=== PATIENT | male | born 1950 | race Caucasian/White ===

== ENCOUNTER 2016-11-12 04:44 | Emergency (ER) | payer MEDICARE ==
[~2016-11-12] VITALS: Ht 180.3 cm; Wt 84.0 kg
[~2016-11-12 04:44] MED LIST: IBUP800T23 PO; METH4TAB6 PO; OMEP20TA PO
[2016-11-12 04:46] VITALS: BP 182/90; PULSE 63; RESP 18; TEMP 98; O2SAT 96
--- NOTE | 2016-11-12 05:05 | PD ---
HPI Chief Complaint: Flank/Kidney Pain Time Seen by Provider: 04:55 Travel History International Travel<30 days: No Contact w/Intl Traveler<30days: No Traveled to known affect area: No History of Present Illness HPI 66-year-old male with history of ureterolithiasis here with complaint of 2 hours of right sided flank/abdominal pain. Patient was sleeping and was awoken at 3 AM with pain. He states that the pain as a dull ache in the right abdomen/ flank. Has had history of ureterolithiasis but states that this feels different. Denies any urinary symptoms. Nausea but no vomiting. No fevers or chills. Bowel movements are regular. No previous abdominal surgery. He took a tramadol approximately 1 hour prior to arrival without improvement of symptoms. PFSH Past Medical History Arthritis: Yes Cancer: Yes (prostate) Diminished Hearing: Yes ([facility] RIGHT SIDE) GERD: Yes Kidney Stones: Yes Immunizations Current: Yes Past Surgical History Ear Surgery: Yes (right ear, mastoid surgery x 2 ) Prostatectomy: Yes Tonsillectomy: Yes Social History Alcohol Use: No Tobacco Use: No Substance Use: No Allergies-Medications (Allergen,Severity, Reaction): Coded Allergies: Lisinopril (Verified Adverse Reaction, Intermediate, Cough, 11/12/16) Reported Meds & Prescriptions Reported Meds & Active Scripts Active Ibuprofen 800 Mg Tab 800 Mg PO Q6HR PRN Reported Omeprazole 20 mg (Omeprazole) 20 Mg Tab 40 Mg PO DAILY Methylprednisolone 4 Mg Tab 2 Mg PO DAILY Review of Systems Except as stated in HPI: all other systems reviewed are Neg Physical Exam Narrative GENERAL: Well-appearing male in no mild distress SKIN: Warm and dry. HEAD: Normocephalic. EYES: No scleral icterus. No injection or drainage. ENT: Mucous membranes pink and moist. NECK: Supple CARDIOVASCULAR: Regular rate and rhythm. No murmur appreciated. RESPIRATORY: No accessory muscle use. Clear to auscultation. Breath sounds equal bilaterally. GASTROINTESTINAL: Abdomen soft, mild right midabdominal tenderness to palpation without rebound or guarding. No CVA tenderness. MUSCULOSKELETAL: Normal gait NEUROLOGICAL: Awake and alert. Normal speech. PSYCHIATRIC: Appropriate mood and affect; insight and judgment normal. Data Data Last Documented VS Vital Signs Date Time Temp Pulse Resp B/P Pulse Ox O2 Delivery O2 Flow Rate FiO2 11/12/16 05:23 98.1 70 18 152/81 98 Room Air Orders Complete Blood Count With Diff (11/12/16 05:02) Comprehensive Metabolic Panel (11/12/16 05:02) Lipase (11/12/16 05:02) Urinalysis - C+S If Indicated (11/12/16 05:02) Ct Abd/Pel W/O Iv Contrast (11/12/16 05:02) Iv Access Insert/Monitor (11/12/16 05:02) Ecg Monitoring (11/12/16 05:02) Oximetry (11/12/16 05:02) Morphine Inj (Morphine Inj) (11/12/16 05:15) Ondansetron Inj (Zofran Inj) (11/12/16 05:15) Sodium Chloride 0.9% Flush (Ns Flush) (11/12/16 05:15) Labs Laboratory Tests Test 11/12/16 05:10 White Blood Count 5.5 TH/MM3 Red Blood Count 5.11 MIL/MM3 Hemoglobin 15.5 GM/DL Hematocrit 46.6 % Mean Corpuscular Volume 91.2 FL Mean Corpuscular Hemoglobin 30.4 PG Mean Corpuscular Hemoglobin 33.3 % Concent Red Cell Distribution Width 13.2 % Platelet Count 164 TH/MM3 Mean Platelet Volume 8.3 FL Neutrophils (%) (Auto) 53.1 % Lymphocytes (%) (Auto) 31.6 % Monocytes (%) (Auto) 12.8 % Eosinophils (%) (Auto) 1.7 % Basophils (%) (Auto) 0.8 % Neutrophils # (Auto) 2.9 TH/MM3 Lymphocytes # (Auto) 1.7 TH/MM3 Monocytes # (Auto) 0.7 TH/MM3 Eosinophils # (Auto) 0.1 TH/MM3 Basophils # (Auto) 0.0 TH/MM3 CBC Comment DIFF FINAL Differential Comment Urine Color YELLOW Urine Turbidity CLEAR Urine pH 6.0 Urine Specific [place] 1.016 Urine Protein NEG mg/dL Urine Glucose (UA) NEG mg/dL Urine Ketones NEG mg/dL Urine Occult Blood SMALL Urine Nitrite NEG Urine Bilirubin NEG Urine Urobilinogen LESS THAN 2.0 MG/DL Urine Leukocyte Esterase NEG Urine RBC 5 /hpf Urine WBC LESS THAN 1 /hpf Urine Mucus FEW /lpf Microscopic Urinalysis Comment CULT NOT INDICATED Sodium Level 142 MEQ/L Potassium Level 4.0 MEQ/L Chloride Level 104 MEQ/L Carbon Dioxide Level 29.0 MEQ/L Anion Gap 9 MEQ/L Blood Urea Nitrogen 17 MG/DL Creatinine 0.94 MG/DL Estimat Glomerular Filtration 80 ML/MIN Rate Random Glucose 93 MG/DL Calcium Level 9.0 MG/DL Total Bilirubin 0.6 MG/DL Aspartate Amino Transf 28 U/L (AST/SGOT) Alanine Aminotransferase 54 U/L (ALT/SGPT) Alkaline Phosphatase 109 U/L Total Protein 8.0 GM/DL Albumin 4.2 GM/DL Lipase 69 U/L [facility] Medical Decision Making Medical Screen Exam Complete: Yes Emergency Medical Condition: Yes Medical Record Reviewed: Yes Differential Diagnosis 66-year-old male with 2 hours of right mid abdominal pain with nausea. Differential includes hepatobiliary pathology, pancreatitis, appendicitis, ureterolithiasis, UTI/pyelonephritis, gastritis, colitis. Narrative Course Patient placed on monitor, IV established and blood obtained. Given 4 mg morphine, 4 mg Zofran. CBC, CMP, lipase, urinalysis notable for microscopic hematuria. CT abdomen and pelvis showed a 4 mm right ureteropelvic junction stone with mild right hydronephrosis. Diagnosis Primary Impression: Ureterolithiasis Referrals: Valdo Carrillo MD as needed Urologist as needed Additional Instructions: Flomax as prescribed. Nausea, pain medications as needed. Urologist if symptoms persist and return to the ER for the warning signs discussed. Med/Other Pt SpecificInfo: Prescription(s) given Scripts Hydrocodone-Acetaminophen ([place])5-325 mg Tab1 Tab PO Q4H PRN (PAIN) #15 TAB Ref 0 Prov:Twila Fry MD 11/12/16 Ondansetron Odt (Zofran Odt)8 Mg Tab8 Mg SL Q8H PRN (NAUSEA OR VOMITING) #10 TAB Ref 0 Prov:Twila Fry MD 11/12/16 Tamsulosin (Flomax)0.4 Mg Cap0.8 Mg PO HS 30 Days Ref 0 Prov:Twila Fry MD 11/12/16 Disposition: 01 DISCHARGE HOME Condition: Stable Twila Fry MD Nov 12, 2016 05:05
[2016-11-12] MEDS ORDERED: SODIUM CHLORIDE 0.9% FLUSH 5 ML FLUSH IVF PRN (05:15)
[2016-11-12] MEDS ORDERED: ONDANSETRON HCL 4 MG/2 ML VIAL IVP ONE (05:15)
[2016-11-12] MEDS ORDERED: MORPHINE SULFATE 4 MG/ML INJ IV PUSH ONE (05:15)
[2016-11-12 05:23] VITALS: BP 152/81; PULSE 70; RESP 18; TEMP 98.1; O2SAT 98
[2016-11-12 05:24] LABS: AUTOMATED NEUTROPHIL # 2.9 TH/MM3 (1.8-7.7); BASOPHIL % 0.8 % (0.0-2.0); BLOOD, URINE SMALL (NEG); COMMENT (UR) CULT NOT INDICATED; CULTURE IF INDICATED CULT NOT INDICATED; EOSINOPHIL # 0.1 TH/MM3 (0-0.4); EOSINOPHIL % 1.7 % (0.0-4.0); GLUCOSE,URINE NEG (NEG); HEMATOCRIT 46.6 % (39.0-51.0); HEMO FLAGS DIFF FINAL; KETONE, URINE NEG (NEG); LYMPH % 31.6 % (9.0-44.0); LYMPHOCYTE # 1.7 TH/MM3 (1.0-4.8); MEAN CELL VOLUME 91.2 FL (80.0-100.0); MEAN CORPUSCULAR HEMOGLOBIN 30.4 PG (27.0-34.0); MEAN CORPUSCULAR HGB CONC 33.3 % (32.0-36.0); MONO % 12.8 % (0.0-8.0); MUCUS URINE FEW /lpf (OCC); NEUT % 53.1 % (16.0-70.0); NITRITE,URINE NEG (NEG); PLATELET COUNT 164 TH/MM3 (150-450); RED BLOOD COUNT 5.11 MIL/MM3 (4.50-5.90); RED CELL DISTRIBUTION WIDTH 13.2 % (11.6-17.2); URINE COLOR YELLOW (YELLW/STRAW); WHITE BLOOD COUNT 5.5 TH/MM3 (4.0-11.0)
[2016-11-12 05:48] LABS: ALT (GPT) 54 U/L (12-78); ANION GAP 9 MEQ/L (5-15); AST (GOT) 28 U/L (15-37); BLOOD UREA NITROGEN 17 MG/DL (7-18); CHLORIDE 104 MEQ/L (98-107); GLOMERULAR FILTRATION RATE 80 ML/MIN (>89); SODIUM (NA) 142 MEQ/L (136-145)
[2016-11-12 05:50] LABS: ALKALINE PHOSPHATASE 109 U/L (45-117); TOTAL BILIRUBIN ADULT 0.6 MG/DL (0.2-1.0)
--- NOTE | 2016-11-12 06:09 | RADRPT ---
EXAM DATE/TIME: 11/12/2016 05:09 [facility] COMPARISON: No previous studies available for comparison. INDICATIONS : Right flank pain. ORAL CONTRAST: No oral contrast ingested. RADIATION DOSE: 15.16 CTDIvol (mGy) MEDICAL HISTORY : Gastroesophageal reflux disease. Carcinoma, prostate. SURGICAL HISTORY : Prostatectomy. Tonsillectomy. ENCOUNTER: Initial ACUITY: 1 day PAIN SCALE: 7/10 LOCATION: Right flank TECHNIQUE: Volumetric scanning of the abdomen and pelvis was performed. Using automated exposure control and ad justment of the mA and/or kV according to patient size, radiation dose was kept as low as reasonably achievable to obtain optimal diagnostic quality images. FINDINGS: Examination of the lung bases demonstrates no abnormality. No pleural fluid is identified. No pulmona ry nodules are present. The liver and spleen are normal in size and no focal defects are identified. The gallbladder and pancreas are unremarkable. No intrahepatic or extrahepatic ductal dilatation is s een. The adrenal glands are unremarkable. A small hiatal hernia is present. The left kidney is unrema rkable. There multiple right renal stones with mild right hydronephrosis and a 4 mm stone in the righ t ureter pelvic junction Examination of the pelvis demonstrates no evidence of free fluid or pelvic mass. No abnormally enlarg ed inguinal or retroperitoneal lymph nodes are present. The bladder is unremarkable. There is diverti culosis without evidence of diverticulitis. The prostate gland is surgically absent. CONCLUSION: 4 mm right ureteropelvic junction stone with mild right hydronephrosis Ian White MD on November 12, 2016 at 6:03 Board Certified Radiologist. This report was verified electronically.
[2016-11-12 06:17] VITALS: BP 188/93; PULSE 69; RESP 18; O2SAT 99
[2016-11-12] MEDS ORDERED: ZOFR8TAB4 SL (06:17)
[2016-11-12] MEDS ORDERED: NORC5TAB PO (06:17)
[2016-11-12] MEDS ORDERED: TAMS5CAP PO (06:17)
[2016-11-12 06:23] VITALS: BP 166/101; PULSE 68; RESP 18; TEMP 98.1; O2SAT 100
[2016-11-12] MEDS ORDERED: ACETAMINOPHEN/HYDROcodone 325 MG/5 MG TAB PO ONE (06:30)
[2016-11-12] MEDS ORDERED: TAMSULOSIN HCL 0.4 MG CAP PO ONE (06:30)
[2016-11-12 06:41] VITALS: RESP 18
== END 2016-11-12 06:44 | disposition home or self-care (01) ==
LOC: NEPE 04:44
DX: N20.1 Calculus of ureter (principal); Z85.46 Personal history of malignant neoplasm of prostate; Z87.442 Personal history of urinary calculi
CPT/HCPCS: 74176; 80053; 81001; 83690; 85025; 96374; 96375; 99284; J2270; J2405

== ENCOUNTER 2017-05-15 16:24 | Observation (INO) | payer MEDICARE ==
[~2017-05-15] VITALS: Ht 180.3 cm; Wt 89.0 kg
[~2017-05-15 16:24] MED LIST changes: +NORC5TAB PO; +TAMS5CAP PO; +ZOFR8TAB4 SL
[2017-05-15 16:26] VITALS: BP 154/90; PULSE 94; RESP 16; TEMP 98.4; O2SAT 96
--- NOTE | 2017-05-15 20:44 | PD ---
HPI Chief Complaint: Eye Problems/Injury Time Seen by Provider: 20:21 Travel History International Travel<30 days: No Contact w/Intl Traveler<30days: No Traveled to known affect area: No History of Present Illness HPI The patient is a 66 year old male who presents to the [facility] emergency department with a history of reportedly working on his computer and watching television simultaneously at approximately 3 PM today. He reports that he had sudden onset of double vision. He reports that the vision appeared to be 2 images that were stacked at an angle. The patient reports that he would close one eye and the other eye appeared to have normal vision, when he close the other eye he had normal vision in that eye. However when he objects with both eyes the vision was double. He reports that this lasted from 40 seconds to 60 seconds. The patient reports that he has not had a recurrence since then. He denies ever having symptoms like this previously. He denies any prior history of TIA or stroke. He denies taking aspirin on a daily basis or any other anticoagulants. He reports that his recent history has been complicated by having an exacerbation of psoriatic arthritis with a 3 to four-day increase in his methylprednisolone from 2 mg of 4 mg per day. The patient reports that he has been on methylprednisolone 2 mg a day for over 5 years. He reports that he is not a candidate for other immune modulators due to a history of prostate cancer. The patient reports that he does have chronic congestion, clear rhinorrhea, postnasal drip related to allergies. He reports that he occasionally has frontal sinus headaches, however they have not been changed or worsened recently. He denies having any headache at this time. On review of systems, the patient denies any recent fevers, chest congestion, productive cough, neck pain, chest pain, shortness of breath, abdominal pain, vomiting, diarrhea, urinary symptoms, one-sided weakness, slurred speech, difficulty with word finding ability, dizziness, or facial droop. [facility] Past Medical History Narrative Medical The patient's past medical history is significant for prostate cancer treated status post prostatectomy and Lupron injections as well as radiation therapy. He completed his course of treatment a year and a half ago. He reports that he regularly has his PSA checked and it has been normal. The patient reports having a history of hypertension, however he has not recently been on any medications as it has been controlled by diet. He has a history of psoriatic arthritis. He has a history of acid reflux, and being hard of hearing on the right side, history of kidney stones. Arthritis: Yes Cancer: Yes (prostate) Diminished Hearing: Yes ([facility] [place] [facility] RIGHT SIDE) GERD: Yes Kidney Stones: Yes Immunizations Current: Yes Past Surgical History Narrative Surgical The patient's past surgical history is significant for a prostatectomy, right ear surgery, mastoid surgery 2. Ear Surgery: Yes (right ear, mastoid surgery x 2 ) Prostatectomy: Yes Tonsillectomy: Yes Social History Alcohol Use: No Tobacco Use: No Substance Use: No Allergies-Medications (Allergen,Severity, Reaction): Coded Allergies: Lisinopril (Verified Adverse Reaction, Intermediate, Cough, 11/12/16) Reported Meds & Prescriptions Reported Meds & Active Scripts Active Reported Omeprazole 20 Mg Tab 20 Mg PO DAILY Medrol (Methylprednisolone) 2 Mg Tab 2 Mg PO DAILY Review of Systems Except as stated in HPI: all other systems reviewed are Neg General / Constitutional: No: Fever Eyes: Positive: Diploplia, Blurred Vision, No: Photophobia, Redness, Foreign Body Sensation, Pain, Blind Spots, Visual changes, Blindness HENT: Positive: Headaches (however none currently), Rhinitis, Rhinorrhea, Congestion, No: Neck Stiffness, Neck Pain Cardiovascular: No: Chest Pain or Discomfort Respiratory: No: Shortness of Breath Gastrointestinal: No: Nausea, Vomiting, Diarrhea, Abdominal Pain, Changes in Bowel Habits Genitourinary: Positive: Frequency (chronic urinary frequency), No: Urgency, Dysuria, Pelvic Pain, Flank Pain Musculoskeletal: No: Pain Skin: No Rash Neurologic: No: Weakness, Dizziness, Focal Abnormalities, Headache, Change in Mentation, Slurred Speech, Sensory Disturbance Psychiatric: No: Depression Endocrine: No: Polydipsia Hematologic/Lymphatic: No: Easy Bruising Physical Exam Narrative General: The patient is a well-developed well-nourished male in no acute distress. Head and Neck exam: Head is normocephalic atraumatic. Eyes: EOMI, pupils are equal round and reactive to light. Nose: Midline septum with pink mucous membranes Mouth: Dentition unremarkable. Moist mucus membranes. Posterior oropharynx is not erythematous. No tonsillar hypertrophy. Uvula midline. Airway patent. Neck: No palpable lymphadenopathy. No nuchal rigidity. No thyromegaly. Cardiovascular: Regular rate and rhythm without murmurs, gallops, or rubs. No pulse deficit to the extremities and simultaneous auscultation and palpation of his radial artery. Lungs: Clear to auscultation bilaterally. No wheezes, rhonchi, or rales. Abdomen: Soft, without tenderness to palpation in all 4 quadrants of the abdomen. No guarding, rebound, or rigidity. Normal bowel sounds are audible. No tenderness on palpation of McBurney's point. Extremities: No clubbing, cyanosis, or edema. 2+ pulses in all 4 extremities. No calf tenderness on palpation. Back: No costovertebral angle tenderness to palpation. Neurologic Exam: Cranial nerves 2-12 were intact on exam. Strength is 5/5 in all 4 extremities. No sensory deficits noted. No dysdiadochokinesis. Good finger to nose and Heel to concepcion bilaterally. No nystagmus is noted. No visual field deficits. No double vision noted by his report at this time. Skin Exam: No rash noted. Intact skin that is warm and dry. Data Data Last Documented VS Vital Signs Date Time Temp Pulse Resp B/P Pulse Ox O2 Delivery O2 Flow Rate FiO2 05/15/17 23:00 76 18 137/79 96 Room Air 05/15/17 16:26 98.4 Orders Electrocardiogram (05/15/17 20:33) Complete Blood Count With Diff (05/15/17 20:33) Comprehensive Metabolic Panel (05/15/17 20:33) Troponin I (05/15/17 20:33) Prothrombin Time / Inr (Pt) (05/15/17 20:33) Act Partial Throm Time (Ptt) (05/15/17 20:33) C-Reactive Protein (Crp) (05/15/17 20:33) Lipase (05/15/17 20:33) Urinalysis - C+S If Indicated (05/15/17 20:33) Westergren Sedimentation Rate (05/15/17 20:33) Magnesium (Mg) (05/15/17 20:33) Chest, Single Ap (05/15/17 20:33) Ct Brain W/O Iv Contrast(Rout) (05/15/17 20:33) Iv Access Insert/Monitor (05/15/17 20:33) Ecg Monitoring (05/15/17 20:33) Oximetry (05/15/17 20:33) Ctv Brain W Iv Contrast W 3d (05/15/17 ) Mri Brain W&W/O Contrast (05/15/17 ) Sodium Chlor 0.9% 1000 Ml Inj (Ns 1000 M (05/15/17 20:45) [place] (05/15/17 20:44) Cta Thor Abd Aorta W Iv C W3d (05/15/17 ) Aspirin (Aspirin) (05/15/17 22:30) Iohexol 350 Inj (Omnipaque 350 Inj) (05/15/17 22:39) Gadodiamide Pf Inj (Omniscan Pf Inj) (05/15/17 22:39) Admit Order (Ed Use Only) (05/15/17 23:04) Labs Laboratory Tests Test 05/15/17 20:53 White Blood Count 7.0 TH/MM3 Red Blood Count 4.81 MIL/MM3 Hemoglobin 14.8 GM/DL Hematocrit 44.7 % Mean Corpuscular Volume 92.9 FL Mean Corpuscular Hemoglobin 30.6 PG Mean Corpuscular Hemoglobin 33.0 % Concent Red Cell Distribution Width 13.5 % Platelet Count 159 TH/MM3 Mean Platelet Volume 8.3 FL Neutrophils (%) (Auto) 61.0 % Lymphocytes (%) (Auto) 25.5 % Monocytes (%) (Auto) 12.1 % Eosinophils (%) (Auto) 1.0 % Basophils (%) (Auto) 0.4 % Neutrophils # (Auto) 4.3 TH/MM3 Lymphocytes # (Auto) 1.8 TH/MM3 Monocytes # (Auto) 0.9 TH/MM3 Eosinophils # (Auto) 0.1 TH/MM3 Basophils # (Auto) 0.0 TH/MM3 CBC Comment DIFF FINAL Differential Comment Erythrocyte Sedimentation Rate 9 mm/hr Prothrombin Time 10.4 SEC Prothromb Time International 0.9 RATIO Ratio Activated Partial 24.7 SEC Thromboplast Time Sodium Level 140 MEQ/L Potassium Level 4.2 MEQ/L Chloride Level 106 MEQ/L Carbon Dioxide Level 29.8 MEQ/L Anion Gap 4 MEQ/L Blood Urea Nitrogen 23 MG/DL Creatinine 0.94 MG/DL Estimat Glomerular Filtration 80 ML/MIN Rate Random Glucose 93 MG/DL Calcium Level 9.2 MG/DL Magnesium Level 2.2 MG/DL Total Bilirubin 0.4 MG/DL Aspartate Amino Transf 67 U/L (AST/SGOT) Alanine Aminotransferase 138 U/L (ALT/SGPT) Alkaline Phosphatase 110 U/L Troponin I LESS THAN 0.02 NG/ML C-Reactive Protein LESS THAN 0.29 MG/DL Total Protein 7.7 GM/DL Albumin 4.1 GM/DL Lipase 59 U/L MDM Medical Decision Making Medical Screen Exam Complete: Yes Emergency Medical Condition: Yes Medical Record Reviewed: Yes Interpretation(s) Last Impressions Head CT 05/15/172032 Signed Impressions: Service Date/Time: Monday, May 15, 2017 21:56 - CONCLUSION: Normal examination. John Guillen MD Chest X-Ray 05/15/172032 Signed Impressions: Service Date/Time: Monday, May 15, 2017 20:50 - CONCLUSION: Possible prominence of the ascending aortic contour. Consider CT chest for further evaluation. Streaky left basilar opacity suspect for mild air space disease. John Guillen MD Brain MRI 05/15/17 0000 Signed Impressions: Service Date/Time: Monday, May 15, 2017 22:27 - CONCLUSION: Normal examination. John Guillen MD Brain CT 05/15/17 0000 Signed Impressions: Service Date/Time: Monday, May 15, 2017 21:56 - CONCLUSION: Normal examination. John Guillen MD Aorta CTA 05/15/17 0000 Signed Impressions: Service Date/Time: Monday, May 15, 2017 22:04 - CONCLUSION: 1. Normal aorta. No evidence for aortic dissection. John Guillen MD Differential Diagnosis Venous sinus thrombosis, versus cranial nerve palsy, versus TIA, versus cerebellar process, versus brainstem process, versus multiple sclerosis Narrative Course During the course of the patients emergency department visit, the patients history, examination, and differential diagnosis were reviewed with the patient. The patient had IV access obtained and blood work sent for analysis. The patient was placed on a cardiac surgeon with oximetry and blood pressure monitoring. The patient will be placed with the head of the bed flat. The patient was started on normal saline at 70 mL per hour. The CT scan of the brain, CT be ordered to evaluate his intracerebral venous sinuses. The patient had an MRI with and without contrast ordered to evaluate for possible area of ischemia, versus mass given his history of prostate cancer. ECG was done which showed a sinus rhythm heart rate is 71, right bundle branch block, QRS duration 133 ms, QTC [address] segment elevation or depression, T waves are inverted in V1. The patients laboratory studies were reviewed and remarkable for a white count of 7, hemoglobin 14.8, platelets 159 with 12.1 monocytes, sedimentation rate is 9. , CMP is remarkable for an anion gap of 4, BUN 23, GFR of 80, AST 67, ALT 138, alkaline phosphatase 110, troponin I less than 0.02, C-reactive protein of less than 0.29, lipase 59, PT 10.4, PTT 20 4. Radiology studies were reviewed and remarkable for a chest x-ray was read by the reading radiologist as showing an abnormality possibly involving the aortic contour, recommended further evaluation by CT. A CT can of the aorta was ordered. CT scan of the brain was read as negative, showing no acute abnormality. The patient was given aspirin 325 mg by mouth 1. MRV of the brain, MRI of the brain with and without contrast were read as negative, aorta CTA showed no acute aortic abnormality. The patients results were discussed with the patient, including the plan of care. I explained that further testing and/ or monitoring is indicated based on the patients history, examination, and/ or laboratory findings. Therefore, I recommended admission for additional evaluation. The patient expressed understanding and was agreeable with this plan. The patient was admitted to the hospital in stable condition and [facility] Physician Communication Physician Communication The patient's case was discussed with Dr. Kay who did agree to admit the patient for further evaluation and treatment at this time. Diagnosis Primary Impression: Double vision with both eyes open Additional Impression: Transient neurological symptoms Admitting Information Admitting Physician Requests: Observation Judi Hicks MD May 15, 2017 20:44
[2017-05-15 21:00] VITALS: BP 154/86; PULSE 77; O2SAT 98
[2017-05-15] MEDS ORDERED: METH1TAB29 PO (21:02)
[2017-05-15] MEDS ORDERED: OMEP20TA PO (21:02)
[2017-05-15 21:15] LABS: AUTOMATED NEUTROPHIL # 4.3 TH/MM3 (1.8-7.7); BASOPHIL % 0.4 % (0.0-2.0); EOSINOPHIL # 0.1 TH/MM3 (0-0.4); HEMATOCRIT 44.7 % (39.0-51.0); HEMO FLAGS DIFF FINAL; LYMPH % 25.5 % (9.0-44.0); LYMPHOCYTE # 1.8 TH/MM3 (1.0-4.8); MEAN CELL VOLUME 92.9 FL (80.0-100.0); MEAN CORPUSCULAR HEMOGLOBIN 30.6 PG (27.0-34.0); MONO % 12.1 % (0.0-8.0); PLATELET COUNT 159 TH/MM3 (150-450); RED BLOOD COUNT 4.81 MIL/MM3 (4.50-5.90); RED CELL DISTRIBUTION WIDTH 13.5 % (11.6-17.2)
--- NOTE | 2017-05-15 21:18 | RADRPT ---
EXAM DATE/TIME: 05/15/2017 20:50 [facility] COMPARISON: No previous studies available for comparison. INDICATIONS : Shortness of breath. MEDICAL HISTORY : None. SURGICAL HISTORY : None. ENCOUNTER: Initial ACUITY: 1 day PAIN SCORE: 0/10 LOCATION: Bilateral chest FINDINGS: No cardiomegaly. Mild streaky left basilar infiltrate. No consolidation or effusion. Osseous structur es are intact. Ectasia of the ascending aorta is difficult to exclude with mild prominence of the rig ht mediastinal contour. CONCLUSION: Possible prominence of the ascending aortic contour. Consider CT chest for further evaluation. Streaky left basilar opacity suspect for mild air space disease. John Guillen MD on May 15, 2017 at 21:15 Board Certified Radiologist. This report was verified electronically.
[2017-05-15 21:24] LABS: APTT (PATIENT) 24.7 SEC (24.3-30.1); INTERNATIONAL NORMALIZED RATIO 0.9 RATIO; PROTHROMBIN TIME - PATIENT 10.4 SEC (9.8-11.6)
[2017-05-15 21:31] LABS: ANION GAP 4 MEQ/L (5-15); AST (GOT) 67 U/L (15-37); BICARBONATE 29.8 MEQ/L (21.0-32.0); BLOOD UREA NITROGEN 23 MG/DL (7-18); CHLORIDE 106 MEQ/L (98-107); GLOMERULAR FILTRATION RATE 80 ML/MIN (>89); MAGNESIUM 2.2 MG/DL (1.5-2.5); POTASSIUM 4.2 MEQ/L (3.5-5.1); SODIUM (NA) 140 MEQ/L (136-145)
[2017-05-15 21:34] LABS: ALKALINE PHOSPHATASE 110 U/L (45-117); ALT (GPT) 138 U/L (12-78); TOTAL BILIRUBIN ADULT 0.4 MG/DL (0.2-1.0)
--- NOTE | 2017-05-15 22:09 | RADRPT ---
EXAM DATE/TIME: 05/15/2017 21:56 [facility] COMPARISON: No previous studies available for comparison. INDICATIONS : Patient complains of double vision. RADIATION DOSE: 41.01 CTDIvol (mGy) MEDICAL HISTORY : Carcinoma, prostate. SURGICAL HISTORY : Right mastoid surgery. ENCOUNTER: Initial ACUITY: 1 day PAIN SCALE: 0/10 LOCATION: cranial TECHNIQUE: Multiple contiguous axial images were obtained of the head. Using automated exposure control and adj ustment of the mA and/or kV according to patient size, radiation dose was kept as low as reasonably a chievable to obtain optimal diagnostic quality images. DICOM format image data is available electro nically for review and comparison. FINDINGS: CEREBRUM: The ventricles are normal for age. No evidence of midline shift, mass lesion, hemorrhage or acute in farction. No extra-axial fluid collections are seen. POSTERIOR FOSSA: The cerebellum and brainstem are intact. The 4th ventricle is midline. The cerebellopontine angle i s unremarkable. EXTRACRANIAL: The visualized portion of the orbits is intact. SKULL: The calvaria is intact. No evidence of skull fracture. CONCLUSION: Normal examination. John Guillen MD on May 15, 2017 at 22:07 Board Certified Radiologist. This report was verified electronically.
[2017-05-15] MEDS ORDERED: ASPIRIN 325 MG TAB PO ONE (22:30)
--- NOTE | 2017-05-15 22:31 | RADRPT ---
EXAM DATE/TIME: 05/15/2017 22:04 [facility] COMPARISON: No previous studies available for comparison. INDICATIONS : Patient complains of double vision. IV CONTRAST: 100 cc Omnipaque 350 (iohexol) IV RADIATION DOSE: 23.45 CTDIvol (mGy) MEDICAL HISTORY : Carcinoma, prostate. Gastroesophageal reflux disease. Renal calculi. SURGICAL HISTORY : Tonsillectomy. ENCOUNTER: Initial ACUITY: 1 day PAIN SCALE: 0/10 LOCATION: Abdomen. TECHNIQUE: Volumetric scanning was performed using a multi-row detector CT scanner. The data was post processed with a variety of visualization algorithms including full volume maximum intensity projection, multi -planar sliding thin slab reformation, curved planar reformation, and surface rendering techniques. Using automated exposure control and adjustment of the mA and/or kV according to patient size, radiat ion dose was kept as low as reasonably achievable to obtain optimal diagnostic quality images. DICOM format image data is available electronically for review and comparison. FINDINGS: LUNGS: There is no consolidation or pneumothorax. No concerning pulmonary nodule is visualized. No pleural fluid is present. MEDIASTINUM: No abnormally enlarged lymph nodes by CT criteria. No axillary or hilar abnormalities are identified. ABDOMEN: The liver and spleen are free of focal defects. The gallbladder and pancreas demonstrate no abnormali ty. The adrenal glands are normal. The kidneys demonstrate no evidence of solid renal mass or hydrone phrosis. No free fluid or abdominal masses are identified. No para-aortic adenopathy is seen. There i s diverticulosis of the sigmoid colon without evidence of diverticulitis. There is fatty infiltration of the liver. PELVIS: No evidence of free fluid or pelvic mass. No abnormally enlarged inguinal or retroperitoneal lymph no mohsen are present. The bladder is unremarkable. THORACIC AORTA: The thoracic aortic root is normal with normal branching of the great vessels. There is no evidence of aneurysm or dissection. ABDOMINAL AORTA: The aorta is normal in caliber without aneurysm or dissection. The renal arteries are patent bilater ally. The proximal celiac and superior mesenteric arteries are patent and normal in diameter. PELVIC VESSELS: The internal iliac and external iliac vessels are patent without aneurysm or stenosis. CONCLUSION: 1. Normal aorta. No evidence for aortic dissection. John Guillen MD on May 15, 2017 at 22:27 Board Certified Radiologist. This report was verified electronically.
[2017-05-15] MEDS ORDERED: IOHEXOL 350 MG/ML 10 ML VIAL (for RAD DIAG) IV ONE (22:39)
[2017-05-15] MEDS ORDERED: GADODIAMIDE PF 287 MG/ML 5 ML VIAL (for RAD MRI) IV ONE (22:39)
--- NOTE | 2017-05-15 22:47 | RADRPT ---
EXAM DATE/TIME: 05/15/2017 21:56 [facility] COMPARISON: CTA THORACIC ABDOMINAL AORTA W 3D RECON, May 15, 2017, 22:04. CT BRAIN W/O CONTRAST, May 15, 2017, 21:56. INDICATIONS : Patient complains of double vision. IV CONTRAST: 50 cc Omnipaque 350 (iohexol) IV RADIATION DOSE: 27.47 CTDIvol (mGy) MEDICAL HISTORY : Carcinoma, prostate. SURGICAL HISTORY : Right mastois surgery. ENCOUNTER: Initial ACUITY: 1 day PAIN SCALE: 0/10 LOCATION: cranial TECHNIQUE: Volumetric scanning was performed using a multi-row detector CT scanner. The data was post processed with a variety of visualization algorithms including full volume maximum intensity projection, multi -planar sliding thin slab reformation, curved planar reformation, and surface rendering techniques. Using automated exposure control and adjustment of the mA and/or kV according to patient size, radiat ion dose was kept as low as reasonably achievable to obtain optimal diagnostic quality images. DICO M format image data is available electronically for review and comparison. FINDINGS: Anterior and middle cerebral arteries, internal carotid arteries and distal vertebral arteries are wi clay patent. The superior sagittal sinus, transverse sinuses and sigmoid sinuses are widely patent. S traight sinus and internal cerebral veins are patent. CONCLUSION: Normal examination. John Guillen MD on May 15, 2017 at 22:44 Board Certified Radiologist. This report was verified electronically.
--- NOTE | 2017-05-15 22:57 | RADRPT ---
EXAM DATE/TIME: 05/15/2017 22:27 [facility] COMPARISON: No previous studies available for comparison. INDICATIONS : Diplopia. CONTRAST: 18 cc Omniscan (gadodiamide) IV MEDICAL HISTORY : Carcinoma, prostate. SURGICAL HISTORY : Knee surgery. ENCOUNTER: Initial ACUITY: 1 day PAIN SCORE: 3/10 LOCATION: Head. TECHNIQUE: Multiplanar, multisequence MRI of the brain was performed both prior to and following the administrat ion of paramagnetic contrast. FINDINGS: Diffusion weighted images demonstrate no evidence for acute infarction. Ventricles and cisterns are o f normal size and configuration. Signal intensity of the brain is normal. Orbits are unremarkable. No abnormal areas of enhancement are identified. No hemorrhage is seen. No masses. CONCLUSION: Normal examination. John Guillen MD on May 15, 2017 at 22:55 Board Certified Radiologist. This report was verified electronically.
[2017-05-15 23:00] VITALS: BP 137/79; PULSE 76; RESP 18; O2SAT 96
[2017-05-15] MEDS: SODIUM CHLOR 0.9% 1000 ML INJ 1,000 ML IV SCH (23:02)
[2017-05-16] VITALS (7 sets, daily range): BP systolic 117–139; BP diastolic 59–79; PULSE 66–76; RESP 14–20; TEMP 97–98.4; O2SAT 96–97
[2017-05-16] MEDS ORDERED: NALOXONE HCL 0.4 MG/ML AMP IV PRN (00:30)
[2017-05-16] MEDS ORDERED: SODIUM CHLORIDE 0.9% FLUSH 10 ML FLUSH IV FLUSH PRN (00:30)
--- NOTE | 2017-05-16 03:36 | HHI.HP ---
HPI Service [facility] Primary Care Physician Alka Dias MD Admission Diagnosis TIA versus cranial nerve palsy Diagnoses: Chief Complaint: blurry vision Travel History International Travel<30 Days: No Contact w/Intl Traveler <30 Da: No Traveled to Known Affected Are: No History of Present Illness Written by FABIAN Melvin acting as scribe for [Eliza] on 05/16/17 at 03: 19. 66 y/o male with a history of psoriatic arthritis, HTN (not on medication), prostate cancer and gerd presented to the ED with complaints of double vision. He states he was at home about 3pm was watching TV and he began to have double vision and the objects were going sideways, and it lasted less than 1 minute. He does not recall any eye infections recently, he does complain of dry, irritated eyes that has been going on for a while. Prior to watching IV he states he did not drink a lot of water, and he went and walked the bridge, and only ate a banana for breakfast. Denies any chest pain, sob, fever, chills, black stools or dysuria. Review of Systems Except as stated in HPI: all other systems reviewed are Neg Past Family Social History Past Medical History psoriatic arthritis HTN (not on medication) prostate cancer with radiation gerd Past Surgical History Proctectomy Tonsillectomy Adenoidectomy Mastoid surgery Right knee surgery Reported Medications Reported Meds & Active Scripts Active Reported Omeprazole 20 Mg Tab 20 Mg PO DAILY Medrol (Methylprednisolone) 2 Mg Tab 2 Mg PO DAILY Allergies: Coded Allergies: Lisinopril (Verified Adverse Reaction, Intermediate, Cough, 11/12/16) Active Ordered Medications Current Medications Medications (Trade) Dose Ordered Sig/Eros Route Start Time Stop Time Status Last Admin (NS 1000 ml Inj) 1,000 ml @ 75 mls/hr [id number] IV 05/15/17 20:45 05/15/17 23:02 (NS Flush) 2 ml UNSCH PRN IV FLUSH 05/16/17 00:30 (NS Flush) 2 ml BID IV FLUSH 05/16/17 09:00 (Narcan Inj) 0.4 mg UNSCH PRN IV 05/16/17 00:30 Family History Mom: Glaucoma Dad: Lymphoma Denies any heart disease Social History Tobacco use: Denies Alcohol use: socially Illicit drug use: Denies Physical Exam Vital Signs Vital Signs Date Time Temp Pulse Resp B/P Pulse Ox O2 Delivery O2 Flow Rate FiO2 05/16/17 01:26 97.0 72 18 122/59 97 05/16/17 00:53 70 18 117/75 97 05/15/17 23:00 76 18 137/79 96 Room Air 05/15/17 21:00 77 154/86 98 Room Air 05/15/17 16:26 98.4 94 16 154/90 96 Room Air Physical Exam GENERAL: This is a well-nourished, well-developed patient, in no apparent distress. SKIN: No rashes, ecchymoses or lesions. Cool and dry. HEAD: Atraumatic. Normocephalic. No temporal or scalp tenderness. EYES: Pupils equal round and reactive. Extraocular motions intact. ENT: Nose without bleeding, purulent drainage or septal hematoma.Airway patent. NECK: Trachea midline. No JVD or lymphadenopathy. CARDIOVASCULAR: Regular rate and rhythm without murmurs, gallops, or rubs. RESPIRATORY: Clear to auscultation. Breath sounds equal bilaterally. No wheezes , rales, or rhonchi. GASTROINTESTINAL: Abdomen soft, non-tender, nondistended. No hepato-splenomegaly , or palpable masses. No guarding. MUSCULOSKELETAL: Extremities without clubbing, cyanosis, or edema. No joint tenderness, effusion, or edema noted. No calf tenderness NEUROLOGICAL: Awake and alert. Motor and sensory grossly within normal limits.Normal speech. Laboratory Laboratory Tests Test 05/15/17 20:53 White Blood Count 7.0 Red Blood Count 4.81 Hemoglobin 14.8 Hematocrit 44.7 Mean Corpuscular Volume 92.9 Mean Corpuscular Hemoglobin 30.6 Mean Corpuscular Hemoglobin 33.0 Concent Red Cell Distribution Width 13.5 Platelet Count 159 Mean Platelet Volume 8.3 Neutrophils (%) (Auto) 61.0 Lymphocytes (%) (Auto) 25.5 Monocytes (%) (Auto) 12.1 Eosinophils (%) (Auto) 1.0 Basophils (%) (Auto) 0.4 Neutrophils # (Auto) 4.3 Lymphocytes # (Auto) 1.8 Monocytes # (Auto) 0.9 Eosinophils # (Auto) 0.1 Basophils # (Auto) 0.0 CBC Comment DIFF FINAL Differential Comment Erythrocyte Sedimentation Rate 9 Prothrombin Time 10.4 Prothromb Time International 0.9 Ratio Activated Partial 24.7 Thromboplast Time Sodium Level 140 Potassium Level 4.2 Chloride Level 106 Carbon Dioxide Level 29.8 Anion Gap 4 Blood Urea Nitrogen 23 Creatinine 0.94 Estimat Glomerular Filtration 80 Rate Random Glucose 93 Calcium Level 9.2 Magnesium Level 2.2 Total Bilirubin 0.4 Aspartate Amino Transf 67 (AST/SGOT) Alanine Aminotransferase 138 (ALT/SGPT) Alkaline Phosphatase 110 Troponin I LESS THAN 0.02 C-Reactive Protein LESS THAN 0.29 Total Protein 7.7 Albumin 4.1 Lipase 59 Result Diagram: 05/15/17205205/15/172052 Imaging Last Impressions Head CT 05/15/172032 Signed Impressions: Service Date/Time: Monday, May 15, 2017 21:56 - CONCLUSION: Normal examination. John Guillen MD Chest X-Ray 05/15/172032 Signed Impressions: Service Date/Time: Monday, May 15, 2017 20:50 - CONCLUSION: Possible prominence of the ascending aortic contour. Consider CT chest for further evaluation. Streaky left basilar opacity suspect for mild air space disease. John Guillen MD Brain MRI 05/15/17 0000 Signed Impressions: Service Date/Time: Monday, May 15, 2017 22:27 - CONCLUSION: Normal examination. John Guillen MD Brain CT 05/15/17 0000 Signed Impressions: Service Date/Time: Monday, May 15, 2017 21:56 - CONCLUSION: Normal examination. John Guillen MD Aorta CTA 05/15/17 0000 Signed Impressions: Service Date/Time: Monday, May 15, 2017 22:04 - CONCLUSION: 1. Normal aorta. No evidence for aortic dissection. John Guillen MD Assessment and Plan Problem List: (1) Diplopia ICD Code: H53.2 Status: Acute (2) TIA (transient ischemic attack) ICD Code: G45.9 Status: Acute (3) Transaminitis ICD Code: R74.0 Status: Acute Assessment and Plan 66 y/o male with a history of psoriatic arthritis, HTN (not on medication), prostate cancer and gerd presented to the ED with complaints of double vision. Diplopia, possible TIA, r/o CVA Head Ct, Brain CT, Brain MRI reviewed and unremarkable -Consult neurology -neuro checks -2D echo ordered -US carotids ordered -PT eval -Lipid panel ordered Psoriatic arthritis, chronic -Cont home medications Transaminitis, acute, AST 67, ALT 138 -US liver ordered -Hepatitis panel ordered -CMP in AM DVT prophylaxis: SCDs Discussed Condition With Patient, RN, and ED physician Emily Servin May 16, 2017 03:36
[2017-05-16] MEDS ORDERED: PILL SPLITTER OTHER PRN (03:45)
[2017-05-16 07:09] LABS: ALT (GPT) 113 U/L (12-78); ANION GAP 10 MEQ/L (5-15); AST (GOT) 49 U/L (15-37); BICARBONATE 27.1 MEQ/L (21.0-32.0); BLOOD UREA NITROGEN 20 MG/DL (7-18); CHLORIDE 106 MEQ/L (98-107); GLOMERULAR FILTRATION RATE 109 ML/MIN (>89); POTASSIUM 3.7 MEQ/L (3.5-5.1); SODIUM (NA) 143 MEQ/L (136-145)
[2017-05-16 07:11] LABS: ALKALINE PHOSPHATASE 89 U/L (45-117); HDL CHOLESTEROL 41.7 MG/DL (40.0-60.0); LDL CHOLESTEROL 90 MG/DL (0-99); TOTAL BILIRUBIN ADULT 0.7 MG/DL (0.2-1.0)
--- NOTE | 2017-05-16 08:56 | EKG ---
Date Performed: 05/15/2017 Time Performed: 21:40:29 PTAGE: 66 years EKG: Sinus rhythm RIGHT BUNDLE BRANCH BLOCK ABNORMAL ECG NO PREVIOUS TRACING DOCTOR: Ryder Castillo Interpretating Date/Time 05/16/2017 08:56:01
[2017-05-16] MEDS ORDERED: methylPREDNISolone 4 MG TAB PO SCH (09:00)
[2017-05-16] MEDS ORDERED: PANTOPRAZOLE SOD 20 MG DELAYED RELEASE TAB PO SCH (09:00)
[2017-05-16] MEDS ORDERED: SODIUM CHLORIDE 0.9% FLUSH 10 ML FLUSH IV FLUSH SCH (09:00)
[2017-05-16] MEDS: SODIUM CHLOR 0.9% 1000 ML INJ 1,000 ML IV SCH (10:05)
--- NOTE | 2017-05-16 10:08 | RADRPT ---
EXAM DATE/TIME: 05/16/2017 07:59 [facility] COMPARISON: No previous studies available for comparison. INDICATIONS : Transient ischemic attack. MEDICAL HISTORY : Gastroesophageal reflux disease. Hearing loss. Glasses. Prostate cancer. Kidney stones. Arthritis . Radiation therapy. SURGICAL HISTORY : Tonsillectomy. Prostatectomy. Right ear suegery. Mastoid surgery. Left thumb surgery. Right knee kong rgery. ENCOUNTER: Initial ACUITY: 1 day PAIN SCORE: 1/10 LOCATION: Bilateral neck PEAK SYSTOLIC VELOCITIES (cm/sec): ICA/CCA RATIO: Right: 1.2 Left: 1.1 ICA: Right: 85 Left: 111 CCA: Right: 74 Left: 100 ECA: Right: 97 Left: 100 VERTEBRAL: Right: 54 antegrade Left: 51 antegrade Elevated flow velocities and ICA/CCA ratios have been found to correlate with increased degrees of vessel stenosis, calculated as percentage of diameter relative to a normal segment of distal ICA/CCA FINDINGS: RIGHT CAROTID: No significant stenosis is visualized. The waveforms are within normal limits. LEFT CAROTID: No significant stenosis is visualized. The waveforms are within normal limits. VERTEBRAL ARTERIES: Antegrade flow is seen in both vertebral arteries. MISCELLANEOUS: None. CONCLUSION: Normal examination. Ryder Walker MD on May 16, 2017 at 10:06 Board Certified Radiologist. This report was verified electronically.
--- NOTE | 2017-05-16 11:45 | MB ---
cc: STACIE CABELLO M.D. DATE OF CONSULTATION 05/16/2017 REASON FOR CONSULTATION This is a 66-year-old, accompanied by his . He is very pleasant and describing that yesterday he was on the computer when he developed double vision that lasted less than a minute. He was by himself and therefore did not talk to anyone. He was sitting. He observed that when he closed either eye, the double vision dissipated. The images were at an angle. There was no dizziness or vertigo. No paresthesias. He ambulated shortly after the spell and there was no problems with gait or balance. He has a history of prostate cancer, psoriatic arthritis and some high blood pressure, but does not take any medications for this. No stroke, TIAs, or seizures. MEDICATIONS 1. He has been taking Omeprazole for GERD. 2. Medrol 2 mg a day REVIEW OF SYSTEMS The patient admits that he was tired, quite fatigued yesterday and apparently had had an alcoholic drink at lunch and he felt he had some dehydration because he walked over the [facility]. NEUROLOGICAL EXAM: He was showing normal mentation. Ocular movements and visual salas full. Pupils equal and reactive. There is slight flattening on the right nasolabial fold which appears to be chronic as the never notices any difference on his facial expression. There is normal [id number] testing, good strength in the lower extremities. Her reflexes were present throughout. Plantar responses were flexor. Position sense preserved in the distal lower extremities. The patient had a CT brain which was normal. MRI of the brain showed no abnormality. CT angio aorta was unremarkable, as well as CT angio head along with CT venous intracranial appeared normal. Carotid ultrasound was unremarkable. LABORATORY DATA CBC and sed rate normal. Chemistry essentially benign with slightly elevated BUN to 23. The liver enzymes also were mildly elevated. LDL is 90. ASSESSMENT Transient double vision/diplopia. No other associated symptoms. The neurologic exam is normal except for slight flattening on the right nasolabial fold of equivocal significance. LABORATORY DATA Includes an elevation of liver enzymes. IMAGING STUDIES As discussed above, essentially negative. Neurologic prado, I would continue the aspirin that was started here in the hospital. Consider a statin therapy to bring his LDL below 70, but he does have some mildly elevated liver enzymes. Later on if there is a recurrence of diplopia, we will consider myasthenia antibodies, as well as thyroid levels. From a urological standpoint, he can be followed as outpatient in one to two weeks. Thank you for asking us to assist in his care. MD VALERIA Bowers/ERAN /11:22 AM /11:38 AM
--- NOTE | 2017-05-16 12:58 | RADRPT ---
EXAM DATE/TIME: 05/16/2017 08:43 [facility] COMPARISON: No previous studies available for comparison. INDICATIONS : Increased lab values. MEDICAL HISTORY : Gastroesophageal reflux disease. Hearing loss. Glasses. Prostate cancer. Kidney stones. Arthritis . Radiation therapy. SURGICAL HISTORY : Prostatectomy. Tonsillectomy. Right ear suegery. Mastoid surgery. Left thumb surgery. Right knee kong rgery. ENCOUNTER: Initial ACUITY: 1 day PAIN SCORE: 2/10 LOCATION: Bilateral upper quadrant MEASUREMENTS: LIVER: 15.4 cm length COMMON DUCT: Non-visualized RIGHT KIDNEY: 11.4 x 6.8 x 6.3 cm SPLEEN: 9.0 cm length FINDINGS: LIVER: Diffusely echogenic without focal lesion or ductal dilatation. Hepatopedal flow. COMMON DUCT: No intraluminal mass or stone visualized. GALLBLADDER: Contains no stones, demonstrates no wall thickening or pericholecystic fluid. Minimal sludge seen. PANCREAS: Not well seen. RIGHT KIDNEY: No hydronephrosis or mass. Echogenic foci in the right kidney measures 6 and 7 mm in the mid kidney. SPLEEN: No focal lesion. CONCLUSION: 1. Echogenic liver likely hepatic steatosis versus hepatocellular dysfunction. 2. Minimal sludge in the gallbladder but no cholelithiasis. 3. Echogenic foci in the right kidney could be vascular calcifications versus nonobstructing calculi as described above. 4. Nonvisualization pancreas. Rohit Marrero MD on May 16, 2017 at 12:54 Board Certified Radiologist. This report was verified electronically.
--- NOTE | 2017-05-16 13:58 | HHI.PR ---
Subjective Remarks 66 y/o male with a history of psoriatic arthritis, HTN (not on medication), prostate cancer and GERD, presented to the ED with complaints of double vision. He states he was at home about 3pm was watching TV and he began to have double vision and the objects were going sideways, and it lasted less than 1 minute. He does not recall any eye infections recently, he does complain of dry, irritated eyes that has been going on for a while. Prior to watching IV he states he did not drink a lot of water, and he went and walked the bridge, and only ate a banana for breakfast. Denies any chest pain, sob, fever, chills, black stools or dysuria. Seen in his bedroom in the presence of His , status post Neurology specialist consult and recommended to discharge on Aspirin and Statin, stable will be discharge, long conversation with his and Patient about Diet and exercise, and water intake. Objective Vital Signs Date Time Temp Pulse Resp B/P Pulse Ox O2 Delivery O2 Flow Rate FiO2 05/16/17 12:05 98.4 76 14 131/75 96 05/16/17 12:00 69 05/16/17 07:55 98.1 68 16 139/79 96 05/16/17 04:27 97.3 66 20 118/66 96 05/16/17 01:38 67 05/16/17 01:26 97.0 72 18 122/59 97 05/16/17 00:53 70 18 117/75 97 05/15/17 23:00 76 18 137/79 96 Room Air 05/15/17 21:00 77 154/86 98 Room Air 05/15/17 16:26 98.4 94 16 154/90 96 Room Air Result Diagram: 05/15/17205205/16/17 0527 Imaging Last Impressions Liver Ultrasound 05/16/17 0000 Signed Impressions: Service Date/Time: Tuesday, May 16, 2017 08:43 - CONCLUSION: 1. Echogenic liver likely hepatic steatosis versus hepatocellular dysfunction. 2. Minimal sludge in the gallbladder but no cholelithiasis. 3. Echogenic foci in the right kidney could be vascular calcifications versus nonobstructing calculi as described above. 4. Nonvisualization pancreas. Rohit Marrero MD Carotid Artery Ultrasound 05/16/17 0000 Signed Impressions: Service Date/Time: Tuesday, May 16, 2017 07:59 - CONCLUSION: Normal examination. Ryder Walker MD Head CT 05/15/172032 Signed Impressions: Service Date/Time: Monday, May 15, 2017 21:56 - CONCLUSION: Normal examination. John Guillen MD Chest X-Ray 05/15/172032 Signed Impressions: Service Date/Time: Monday, May 15, 2017 20:50 - CONCLUSION: Possible prominence of the ascending aortic contour. Consider CT chest for further evaluation. Streaky left basilar opacity suspect for mild air space disease. John Guillen MD Brain MRI 05/15/17 0000 Signed Impressions: Service Date/Time: Monday, May 15, 2017 22:27 - CONCLUSION: Normal examination. John Guillen MD Brain CT 05/15/17 0000 Signed Impressions: Service Date/Time: Monday, May 15, 2017 21:56 - CONCLUSION: Normal examination. John Guillen MD Aorta CTA 05/15/17 0000 Signed Impressions: Service Date/Time: Monday, May 15, 2017 22:04 - CONCLUSION: 1. Normal aorta. No evidence for aortic dissection. John Guillen MD Procedures None Other Results Laboratory Tests Test 05/15/17 05/16/17 20:53 05:27 White Blood Count 7.0 TH/MM3 Red Blood Count 4.81 MIL/MM3 Hemoglobin 14.8 GM/DL Hematocrit 44.7 % Mean Corpuscular Volume 92.9 FL Mean Corpuscular Hemoglobin 30.6 PG Mean Corpuscular Hemoglobin 33.0 % Concent Red Cell Distribution Width 13.5 % Platelet Count 159 TH/MM3 Mean Platelet Volume 8.3 FL Neutrophils (%) (Auto) 61.0 % Lymphocytes (%) (Auto) 25.5 % Monocytes (%) (Auto) 12.1 % Eosinophils (%) (Auto) 1.0 % Basophils (%) (Auto) 0.4 % Neutrophils # (Auto) 4.3 TH/MM3 Lymphocytes # (Auto) 1.8 TH/MM3 Monocytes # (Auto) 0.9 TH/MM3 Eosinophils # (Auto) 0.1 TH/MM3 Basophils # (Auto) 0.0 TH/MM3 CBC Comment DIFF FINAL Differential Comment Erythrocyte Sedimentation Rate 9 mm/hr Prothrombin Time 10.4 SEC Prothromb Time International 0.9 RATIO Ratio Activated Partial 24.7 SEC Thromboplast Time Magnesium Level 2.2 MG/DL Troponin I LESS THAN 0.02 NG/ML C-Reactive Protein LESS THAN 0.29 MG/DL Lipase 59 U/L Sodium Level 143 MEQ/L Potassium Level 3.7 MEQ/L Chloride Level 106 MEQ/L Carbon Dioxide Level 27.1 MEQ/L Anion Gap 10 MEQ/L Blood Urea Nitrogen 20 MG/DL Creatinine 0.72 MG/DL Estimat Glomerular Filtration 109 ML/MIN Rate Random Glucose 84 MG/DL Calcium Level 8.7 MG/DL Total Bilirubin 0.7 MG/DL Aspartate Amino Transf 49 U/L (AST/SGOT) Alanine Aminotransferase 113 U/L (ALT/SGPT) Alkaline Phosphatase 89 U/L Total Protein 6.7 GM/DL Albumin 3.5 GM/DL Triglycerides Level 162 MG/DL Cholesterol Level 164 MG/DL LDL Cholesterol 90 MG/DL HDL Cholesterol 41.7 MG/DL Cholesterol/HDL Ratio 3.93 RATIO Hepatitis A IgM Antibody NEGATIVE Hepatitis B Surface Antigen NEGATIVE Hepatitis B Core IgM Antibody NEGATIVE Hepatitis C Antibody NEGATIVE Objective Remarks GENERAL: This is a well-nourished, well-developed patient, in no apparent distress. SKIN: No rashes, ecchymoses or lesions. Cool and dry. HEAD: Atraumatic. Normocephalic. No temporal or scalp tenderness. EYES: Pupils equal round and reactive. Extraocular motions intact. ENT: Nose without bleeding, purulent drainage or septal hematoma.Airway patent. NECK: Trachea midline. No JVD or lymphadenopathy. CARDIOVASCULAR: Regular rate and rhythm without murmurs, gallops, or rubs. RESPIRATORY: Clear to auscultation. Breath sounds equal bilaterally. No wheezes , rales, or rhonchi. GASTROINTESTINAL: Abdomen soft, non-tender, nondistended. No hepato-splenomegaly , or palpable masses. No guarding. MUSCULOSKELETAL: Extremities without clubbing, cyanosis, or edema. No joint tenderness, effusion, or edema noted. No calf tenderness NEUROLOGICAL: Awake and alert. Motor and sensory grossly within normal limits.Normal speech. Medications and IVs Current Medications Medications (Trade) Dose Ordered Sig/Eros Route Start Time Stop Time Status Last Admin (NS 1000 ml Inj) 1,000 ml @ 75 mls/hr [id number] IV 05/15/17 20:45 05/16/17 10:05 (NS Flush) 2 ml UNSCH PRN IV FLUSH 05/16/17 00:30 (NS Flush) 2 ml BID IV FLUSH 05/16/17 09:00 (Narcan Inj) 0.4 mg UNSCH PRN IV 05/16/17 00:30 (Medrol) 2 mg DAILY PO 05/16/17 09:00 05/16/17 09:37 (Protonix) 20 mg DAILY PO 05/16/17 09:00 05/16/17 09:37 (Pill Splitter) 1 ea UNSCH PRN OTHER 05/16/17 03:45 A/P Assessment and Plan 66 y/o male with a history of psoriatic arthritis, HTN (not on medication), prostate cancer and gerd presented to the ED with complaints of double vision. Diplopia, Ruled out any TIA or CVA all tests taken were within normal limits, Head Ct, Brain CT, Brain MRI reviewed and unremarkable -Neurology specialist recommended to discharge home on Aspirin and Statins. -neuro checks -Echocardiogram may be performed by PCP as outpatient. Psoriatic arthritis, chronic -Cont home medications Transaminitis, acute, AST 67, ALT 138 -ADAMS known by patient Hepatitis profile negative. DVT prophylaxis: SCDs Discussed Condition With Patient and his in the room. Discharge Planning Discharge Home now. Mundo Morrow MD May 16, 2017 13:58
[2017-05-16] MEDS ORDERED: ASPI325T PO (14:02)
[2017-05-16] MEDS ORDERED: PRAV40TA2 PO (14:02)
--- NOTE | 2017-05-16 14:05 | HHI.DS ---
Discharge Summary Admission Date May 15, 2017 at 23:05 Discharge Date: May 16, 2017 Admitting Diagnosis TIA versus cranial nerve palsy (1) Diplopia ICD Code: H53.2 Diagnosis: Principal (2) Transaminitis ICD Code: R74.0 Diagnosis: Principal Procedures None Brief History - From Admission Written by FABIAN Melvin acting as scribe for [Eliza] on 05/16/17 at 03: 19. 66 y/o male with a history of psoriatic arthritis, HTN (not on medication), prostate cancer and gerd presented to the ED with complaints of double vision. He states he was at home about 3pm was watching TV and he began to have double vision and the objects were going sideways, and it lasted less than 1 minute. He does not recall any eye infections recently, he does complain of dry, irritated eyes that has been going on for a while. Prior to watching IV he states he did not drink a lot of water, and he went and walked the bridge, and only ate a banana for breakfast. Denies any chest pain, sob, fever, chills, black stools or dysuria. CBC/BMP: 05/15/17205205/16/17 0527 Significant Findings Laboratory Tests Test 05/15/17 05/16/17 20:53 05:27 Monocytes (%) (Auto) 12.1 % (0.0-8.0) Anion Gap 4 MEQ/L (5-15) Blood Urea Nitrogen 23 MG/DL (7-18) 20 MG/DL (7-18) Estimat Glomerular Filtration 80 ML/MIN (>89) Rate Aspartate Amino Transf 67 U/L (15-37) 49 U/L (15-37) (AST/SGOT) Alanine Aminotransferase 138 U/L (12-78) 113 U/L (12-78) (ALT/SGPT) Troponin I LESS THAN 0.02 NG/ML (0.02-0.05) Lipase 59 U/L (73-393) Triglycerides Level 162 MG/DL (42-150) Imaging Last Impressions Liver Ultrasound 05/16/17 0000 Signed Impressions: Service Date/Time: Tuesday, May 16, 2017 08:43 - CONCLUSION: 1. Echogenic liver likely hepatic steatosis versus hepatocellular dysfunction. 2. Minimal sludge in the gallbladder but no cholelithiasis. 3. Echogenic foci in the right kidney could be vascular calcifications versus nonobstructing calculi as described above. 4. Nonvisualization pancreas. Rohit Marrero MD Carotid Artery Ultrasound 05/16/17 0000 Signed Impressions: Service Date/Time: Tuesday, May 16, 2017 07:59 - CONCLUSION: Normal examination. Ryder Walker MD Head CT 05/15/172032 Signed Impressions: Service Date/Time: Monday, May 15, 2017 21:56 - CONCLUSION: Normal examination. John Guillen MD Chest X-Ray 05/15/172032 Signed Impressions: Service Date/Time: Monday, May 15, 2017 20:50 - CONCLUSION: Possible prominence of the ascending aortic contour. Consider CT chest for further evaluation. Streaky left basilar opacity suspect for mild air space disease. John Guillen MD Brain MRI 05/15/17 0000 Signed Impressions: Service Date/Time: Monday, May 15, 2017 22:27 - CONCLUSION: Normal examination. John Guillen MD Brain CT 05/15/17 0000 Signed Impressions: Service Date/Time: Monday, May 15, 2017 21:56 - CONCLUSION: Normal examination. John Guillen MD Aorta CTA 05/15/17 0000 Signed Impressions: Service Date/Time: Monday, May 15, 2017 22:04 - CONCLUSION: 1. Normal aorta. No evidence for aortic dissection. John Guillen MD PE at Discharge GENERAL: This is a well-nourished, well-developed patient, in no apparent distress. SKIN: No rashes, ecchymoses or lesions. Cool and dry. HEAD: Atraumatic. Normocephalic. No temporal or scalp tenderness. EYES: Pupils equal round and reactive. Extraocular motions intact. ENT: Nose without bleeding, purulent drainage or septal hematoma.Airway patent. NECK: Trachea midline. No JVD or lymphadenopathy. CARDIOVASCULAR: Regular rate and rhythm without murmurs, gallops, or rubs. RESPIRATORY: Clear to auscultation. Breath sounds equal bilaterally. No wheezes , rales, or rhonchi. GASTROINTESTINAL: Abdomen soft, non-tender, nondistended. No hepato-splenomegaly , or palpable masses. No guarding. MUSCULOSKELETAL: Extremities without clubbing, cyanosis, or edema. No joint tenderness, effusion, or edema noted. No calf tenderness NEUROLOGICAL: Awake and alert. Motor and sensory grossly within normal limits.Normal speech. Hospital Course 66 y/o male with a history of psoriatic arthritis, HTN (not on medication), prostate cancer and GERD, presented to the ED with complaints of double vision. He states he was at home about 3pm was watching TV and he began to have double vision and the objects were going sideways, and it lasted less than 1 minute. He does not recall any eye infections recently, he does complain of dry, irritated eyes that has been going on for a while. Prior to watching IV he states he did not drink a lot of water, and he went and walked the bridge, and only ate a banana for breakfast. Denies any chest pain, sob, fever, chills, black stools or dysuria. Seen in his bedroom in the presence of His , status post Neurology specialist consult and recommended to discharge on Aspirin and Statin, stable will be discharge, long conversation with his and Patient about Diet and exercise, and water intake. Assessment and Plan 66 y/o male with a history of psoriatic arthritis, HTN (not on medication), prostate cancer and gerd presented to the ED with complaints of double vision. Diplopia, Ruled out any TIA or CVA all tests taken were within normal limits, Head Ct, Brain CT, Brain MRI reviewed and unremarkable -Neurology specialist recommended to discharge home on Aspirin and Statins. -neuro checks -Echocardiogram may be performed by PCP as outpatient. Psoriatic arthritis, chronic -Cont home medications Transaminitis, acute, AST 67, ALT 138 -ADAMS known by patient Hepatitis profile negative. DVT prophylaxis: SCDs Discussed Condition With Patient and his in the room. Discharge Planning Discharge Home now. Pt Condition on Discharge: Good Discharge Disposition: Discharge Home Discharge Time: <= 30 minutes Discharge Instructions DIET: Follow Instructions for: Heart Healthy Diet Activities you can perform: Regular-No Restrictions Mundo Morrow MD May 16, 2017 14:05
[2017-05-16] MEDS ORDERED: ASPIRIN 325 MG TAB PO ONE (14:15)
--- NOTE | 2017-05-16 15:47 | ECHRPT ---
Indication: CONCLUSIONS Normal left ventricular size. Mild concentric left ventricular hypertrophy. The left ventricular systolic function is hyperdynamic with an estimated ejection fraction in the ra nge of 65- 70%. No regional wall motion abnormalities are present. Doppler parameters are consistent with impaired left ventricular relaxtion (grade 1 diastolic dysfun ction). BP: 118 / 66 HR: Rhythm: MEASUREMENTS (Male / Female) Normal Values Technical Quality: 2D ECHO LV Diastolic Diameter PLAX 4.0 cm 4.2 - 5.9 / 3.9 - 5.3 cm LV Systolic Diameter PLAX 2.5 cm IVS Diastolic Thickness 1.3 cm 0.6 - 1.0 / 0.6 - 0.9 cm LVPW Diastolic Thickness 1.3 cm 0.6 - 1.0 / 0.6 - 0.9 cm LV Relative Wall Thickness 0.6 LVOT Diameter 1.9 cm Aortic Root Diameter 3.5 cm LA Systolic Diameter LX 3.0 cm 3.0 - 4.0 / 2.7 - 3.8 cm M-MODE AV Cusp Separation MM 2.4 cm DOPPLER AV Peak Velocity 113.0 cm/s AV Peak Gradient 5.1 mmHg AV Mean Gradient 3.0 mmHg AV Velocity Time Integral 22.5 cm LVOT Peak Velocity 70.7 cm/s LVOT Peak Gradient 2.0 mmHg LVOT Velocity Time Integral 14.5 cm AV Area Cont Eq vti 1.8 cm AV Area Cont Eq pk 1.8 cm Mitral E Point Velocity 52.8 cm/s Mitral A Point Velocity 74.5 cm/s Mitral E to A Ratio 0.7 PV Peak Velocity 66.2 cm/s PV Peak Gradient 1.8 mmHg FINDINGS LEFT VENTRICLE Normal left ventricular size. Mild concentric left ventricular hypertrophy. The left ventricular systolic function is hyperdynamic with an estimated ejection fraction in the ra nge of 65- 70%. No regional wall motion abnormalities are present. Doppler parameters are consistent with impaired left ventricular relaxtion (grade 1 diastolic dysfun ction). RIGHT VENTRICLE Normal right ventricular size and systolic function. LEFT ATRIUM The left atrial size is normal. RIGHT ATRIUM The right atrial size is normal. ATRIAL SEPTUM Normal atrial septal thickness without atrial level shunting by limited color doppler interrogation. AORTA The aortic root and proximal ascending aorta are normal in size on limited imaging. MITRAL VALVE Structurally normal mitral valve. No mitral valve stenosis or regurgitation. AORTIC VALVE Trileaflet aortic valve. No aortic valve stenosis or regurgitation. TRICUSPID VALVE Structurally normal tricuspid valve. No tricuspid valve stenosis or regurgitation. PULMONARY VALVE The pulmonary valve is not well visualized. VESSELS The inferior vena cava is normal in size. PERICARDIUM No pericardial effusion. Ryder Castillo MD, FACC (Electronically Signed) Final Date:16 May 2017 15:46
== END 2017-05-16 14:46 | disposition home or self-care (01) ==
LOC: NEPC 16:24 → NEDA 23:05 → NEPFCDU 05-16 01:09
PROVIDERS: ADMIT Internal Medicine; ATTEND Internal Medicine
DX: H53.2 Diplopia (principal); G45.9 Transient cerebral ischemic attack, unspecified; R74.0 Nonspecific elevation of levels of transaminase and lactic acid dehydrogenase [LDH]; I45.10 Unspecified right bundle-branch block; R94.31 Abnormal electrocardiogram [ECG] [EKG]; R06.02 Shortness of breath; R53.83 Other fatigue; R09.82 Postnasal drip; R51 Headache; R74.8 Abnormal levels of other serum enzymes; I10 Essential (primary) hypertension; K21.9 Gastro-esophageal reflux disease without esophagitis; L40.50 Arthropathic psoriasis, unspecified; H91.90 Unspecified hearing loss, unspecified ear; M19.90 Unspecified osteoarthritis, unspecified site; Z87.442 Personal history of urinary calculi; Z85.46 Personal history of malignant neoplasm of prostate; Z92.3 Personal history of irradiation
CPT/HCPCS: 70450; 70496; 70553; 71010; 71275; 74174; 76705; 80053; 80061; 80074; 83690; 83735; 84484; 85025; 85610; 85652; 85730; 86140; 93005; 93306; 93880; 99285; A9579; G0378; J7030; J7509; Q9967